=== PATIENT | male | born 1945 | race Caucasian/White ===

== ENCOUNTER 2018-04-13 14:51 | Inpatient (IN) | payer OTHER ==
[~2018-04-13] VITALS: Ht 185.4 cm; Wt 93.4 kg
[2018-04-13 15:37] VITALS: BP 137/77
[2018-04-13 17:34] VITALS: BP 135/95
[2018-04-13 17:41] LABS: HEMATOCRIT 32.9 % (42.0-52.0); HEMOGLOBIN 10.6 gm/dL (14.0-18.0); MCH 26.8 pg (26.0-34.0); MCHC 32.3 g/dL (28.0-37.0); MCV 83.1 fL (80.0-100.0); RBC 3.96 mil/uL (4.50-6.00); RDW 17.6 % (10.5-14.5); WBC 8.8 thou/uL (4.0-11.0)
[2018-04-13 17:49] LABS: APTT 34.9 Seconds (24.5-32.8); INR 1.1; PROTIME 11.4 Seconds (9.3-11.4)
[2018-04-13 17:54] LABS: ALBUMIN 2.6 g/dL (3.4-5.0); CALCIUM 6.7 mg/dL (8.5-10.1); CREATININE 18.4 mg/dL (0.7-1.3); POTASSIUM 4.5 mmol/L (3.5-5.1); TOTAL BILIRUBIN 0.6 mg/dL (<0.1-1.0); TOTAL PROTEIN 6.2 g/dL (6.4-8.2); TROPONIN-I 0.25 ng/mL (<0.06)
--- NOTE | 2018-04-13 20:02 | NUR ---
Pt is a direct admit, pt is to have a stent place mohamud by IR. Plan is to have dialysis inpt for 3 days then to be followed through OP. Labs and diagnostics ordered. No issues or complaints identified.
[2018-04-13 20:45] VITALS: BP 136/118
--- NOTE | 2018-04-14 03:17 | NUR ---
PT SLEPT MOST OF THE NIGHT PT USED CALL LIGHT EFFECTIVELY NO ISSUES OVERNIGHT.
[2018-04-14 03:38] VITALS: BP 133/95
[2018-04-14 05:32] LABS: HEMOGLOBIN 10.3 gm/dL (14.0-18.0)
[2018-04-14 05:33] LABS: MCH 26.7 pg (26.0-34.0); MCHC 32.2 g/dL (28.0-37.0); RBC 3.86 mil/uL (4.50-6.00); RDW 17.5 % (10.5-14.5); WBC 8.3 thou/uL (4.0-11.0)
[2018-04-14 06:05] LABS: ALBUMIN 2.4 g/dL (3.4-5.0); CALCIUM 6.7 mg/dL (8.5-10.1); CREATININE 18.8 mg/dL (0.7-1.3); MAGNESIUM 2.2 mg/dL (1.8-2.4); PHOSPHORUS 11.7 mg/dL (2.5-4.9); TOTAL BILIRUBIN 0.6 mg/dL (<0.1-1.0); TOTAL PROTEIN 5.9 g/dL (6.4-8.2)
[2018-04-14 07:39] VITALS: BP 132/89
[2018-04-14] MEDS ORDERED: RENA-VITE RX T1 EACH PO (07:42)
[2018-04-14] MEDS ORDERED: LABETALOL HCL100 MG PO (07:43)
[2018-04-14] MEDS ORDERED: AMLODIPINE BESY10 MG PO (07:44)
[2018-04-14] MEDS ORDERED: CARDURA2 MG PO (07:45)
[2018-04-14] MEDS ORDERED: RENVELA800 MG PO (07:45)
[2018-04-14] MEDS ORDERED: COZAAR 25 MG TA25 M1 PO (07:47)
--- NOTE | 2018-04-14 08:00 | EKG ---
[address] [address] ELECTROCARDIOGRAM REPORT Name: ERNESTO SWARTZYARELI Room #: 456-P ADM IN M.R.#: [id number] Admission: 04/13/18 Attend Phys: Ricardo Corrales MD Discharge: Date of : 49 Report #: [id number] THIS REPORT FOR: //name// [facility] Test Date: 2018-04-13 Test Time: 17:23:53 Pat Name: ETIENNE SWARTZ Department: Room: 456 P Gender: M Magazine Hand: Caren COMER : 1945 Requested By: Ricardo Corrales Order Number: [id number] MD: Shawn Rosario Measurements Intervals Kevin Rate: 95 P: GA: QRS: 68 QRSD: 106 T: 157 QT: 382 QTc: 481 Interpretive Statements Atrial fibrillation Ventricular premature complex Nonspecific ST and T wave abnormality No previous ECG available for comparison Electronically Signed On 04-14-2018 8:00:37 BOOTS AND SHOES SUPERVISOR by Shawn Rosario [email or web address] <ELECTRONICALLY SIGNED> By: Shawn Rosario MD, [facility] 04/14/18 0800 1723 1723 Shawn Rosario MD, FACC /EPI
--- NOTE | 2018-04-14 10:48 | 2DMMODE ---
[facility] [address] [place] [address] 2 D/M-MODE ECHOCARDIOGRAM Name: ETIENNE SWARTZ Room #: 456-P ADM IN M.R.#: [id number] Admission: 04/13/18 Attend Phys: Ricardo Corrales MD Discharge: Date of : 49 Date of Service: 04/14/18 1048 Report #: [id number] THIS REPORT FOR: //name// APPROVED REPORT Study performed: 04/14/2018 10:00:32 EXAM: Comprehensive 2D, Doppler, and color-flow Echocardiogram Patient Location: Bedside Room #: 456 Status: routine BSA: 2.12 HR: 120 bpm BP: 132/89 mmHg Rhythm: Atrial Fibrillation Other Information Study Quality: Excellent Indications Short of breath. Hx: dilated CM EF of 30-35%, chronic Afib, ESRD, HTN. 2D Dimensions RVDd: 52.09 mm IVSd: 13.26 (7-11mm) LVOT Diam: 23.18 (18-24mm) LVDd: 60.29 mm PWd: 12.64 (7-11mm) Ascending Ao: 42.12 (22-36mm) LVDs: 49.28 (25-40mm) Aortic Root: 39.94 mm Volumes Left Atrial Volume (Systole) Single Plane 4CH: 129.60 mL Single Plane 2CH: 121.96 mL LA ESV Index: 63.00 mL/m2 Aortic Valve AoV Peak Delfin.: 2.88 m/s AO Peak Gr.: 33.19 mmHg LVOT Max P.93 mmHg AO Mean Gr.: 22.33 mmHg AO V2 Mean: 2.32 m/s LVOT Max V: 0.69 m/s AO V2 VTI: 50.28 cm ANKUSH Vmax: 1.02 cm2 Mitral Valve [facility] [place] [address] 2 D/M-MODE ECHOCARDIOGRAM Name: ETIENNE SWARTZ Room #: 456-P ADM IN M.R.#: [id number] Admission: 04/13/18 Attend Phys: Ricardo Corrales MD Discharge: Date of : 49 Date of Service: 04/14/18 1048 Report #: [id number] MV Decel. Time: 124.57 ms MV E Max Delfin.: 1.05 m/s Pulmonary Valve PV Peak Delfin.: 0.75 m/s PV Peak Gr.: 2.27 mmHg Tricuspid Valve TR Peak Delfin.: 3.40 m/s RAP Estimate: 15.00 mmHg TR Peak Gr.: 46.18 mmHg PA Pressure: 61.00 mmHg Left Ventricle Left ventricle is mildly dilated. Mild concentric left ventricular hypertrophy. Left ventricular systolic function is severely decreased.globally LVEF is 30%. This study is not technically sufficient to allow evaluation of the LV diastolic function due to atrial fibrillation. Right Ventricle Right ventricle is dilated. Right ventricle is hypokinetic. Atria Left atrium is severely dilated. Right atrium is severely dilated. Aortic Valve Aortic valve leaflets are moderately thickened and calcified. Mild aortic regurgitation. Moderate aortic stenosis with a calculated valve area of 1.2cm2. Mitral Valve The mitral valve is normal in structure. Moderate mitral regurgitation. Tricuspid Valve The tricuspid valve is normal in structure. Moderate tricuspid regurgitation. Estimated PAP is 55- 60mmHg. Pulmonic Valve The pulmonary valve is normal in structure. Mild pulmonic regurgitation. Great Vessels Aortic root is dilated at 4.0cm. Ascending aorta is dilated at 4.2cm. IVC is dilated and collapses <50% with [facility] [address] [place] [address] 2 D/M-MODE ECHOCARDIOGRAM Name: ETIENNE SWARTZ Room #: 456-P [facility] IN M.R.#: [id number] Admission: 04/13/18 Attend Phys: Ricardo Corrales MD Discharge: Date of : 49 Date of Service: 04/14/18 1048 Report #: [id number] inspiration. Pericardium There is no pericardial effusion. <Conclusion> Left ventricle is mildly dilated. Mild concentric left ventricular hypertrophy. Left ventricular systolic function is severely decreased.globally LVEF is 30%. This study is not technically sufficient to allow evaluation of the LV diastolic function due to atrial fibrillation. Right ventricle is dilated. Right ventricle is hypokinetic. Left atrium is severely dilated. Right atrium is severely dilated. Aortic valve leaflets are moderately thickened and calcified. Mild aortic regurgitation. Moderate aortic stenosis with a calculated valve area of 1.2cm2. Moderate mitral regurgitation. Moderate tricuspid regurgitation. Estimated PAP is 55- 60mmHg. Aortic root is dilated at 4.0cm. There is no pericardial effusion. <ELECTRONICALLY SIGNED> By: Benson Pacheco MD, FACC 04/14/18 1048 1048 1048 Benson Pacheco MD, FACC /INF
[2018-04-14 15:09] VITALS: BP 150/98
--- NOTE | 2018-04-14 15:51 | NUR ---
PT ADMITTED RELATED TO FAILUR TO THRIVE, ESRD. CM REVIEWED CHART AND SPOKE WITH CARE TEAM. CM MET WITH PT AT BEDSIDE THIS DAY. PT IS A&O X4. CM ROLE INTRODUCED PT INDICATED HE LIVES IN A BASEMENT APARTMENT WITH HIS WITH NO STEPS TO ENTER AND NO STEPS INSIDE. 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 PT DOES NOC PERITONEAL DIALYSIS AND IS FOLLOWED BY JENNIFER MCKNIGHT AND DR. BISHOP. PT INDICATED NO DME OR HHHX. PT INDICATED HE PLANS TO RETURN HOME ONCE MEDICALLY STABLE. CM TO FOLLOW INDICATED WITH DC PLANNING.
[2018-04-14 17:51] VITALS: BP 122/83
--- NOTE | 2018-04-14 19:21 | NUR ---
PT HAD IR PROCEDURE THIS MORNING FOR PLACEMENT OF DIALYSIS CATHETER. PT THEN WENT OT DIALYSIS. PT HAS BEEN TACHYCARDIC SINCE ARRIVAL BACK ON UNIT, SEVERAL CALLS PLACED TO PHYSICIAN AND SEVERAL ORDERS FOR MEDS ENTERED AND GIVEN. PT ALSO HAD BLEEDING FROM DIALYSIS SITE, DIALYSIS NURSE CHANGED DRESSING. PT ALSO HAD TO BE TITRATED FOR LOW 02 SATURATION SEVERAL TIMES (4 LITERS ON UNIT). PT RESTING.
[2018-04-14 19:32] VITALS: BP 122/79
[2018-04-14 20:32] VITALS: BP 122/86
[2018-04-15 02:30] VITALS: BP 116/80
--- NOTE | 2018-04-15 03:16 | NUR ---
PT RESTED THROUGH MOST OF THE NIGHT PT UNCOMPLIANT WITH STAFF REQUEST TO WEAR O2 TO THE BATHROOM PT DID USE CALL LIGHT FOR HELP TO GO TO THE BATHROOM.
[2018-04-15 08:03] VITALS: BP 119/80
--- NOTE | 2018-04-15 15:08 | NUR ---
DR. AMARAL HAD INDICATED THAT HE WAS WORKING TO ESTABLISH PT WITH OUTPATIENT HEMO DIALYSIS [facility]. CM CALLED NOE AT [facility] AND SHE INDICATED THAT SHE HAD A CHAIR TIME FOR PT OF WEDNESDAY, , WEDNESDAY AT 10:45. CM FAXED FLOW SHEETS TO THEM. CM TO FOLLOW INDICATED WITH DC PLANNING. IF PT DISCHARGES OVER THE WEEKEND MOST RECENT FLOWSHEETS SHOULD BE FAXED TO .
[2018-04-15 15:45] VITALS: BP 127/86
[2018-04-15 19:01] VITALS: BP 124/84
--- NOTE | 2018-04-15 23:22 | NUR ---
Assumed care at 1845. Pt resting in bed. HR was at 141 when we was going to the bathroom but it has gone down to 104 whilst in bed. Pt denies chest pain. Call light within reach. Bed in lowest position. Will continue to monitor.
[2018-04-16 01:51] VITALS: BP 112/79
[2018-04-16 08:59] VITALS: BP 135/86
--- NOTE | 2018-04-16 17:06 | NUR ---
PT STABLE THROUGHOUT SHIFT. PT HAD DIALYSIS WHICH HER TOLERATED WELL. PT RESTING COMFORTABLY.
[2018-04-16 17:10] VITALS: BP 129/62
[2018-04-16 21:51] VITALS: BP 115/83
--- NOTE | 2018-04-17 03:13 | NUR ---
PT SLEPT MOST OF THE NIGHT PT USED CALL LIGHT EFFECTIVELY VS STABLE NO ISSUES OVERNIGHT.
[2018-04-17 04:22] VITALS: BP 116/71
[2018-04-17 07:31] VITALS: BP 125/86
[2018-04-17] MEDS ORDERED: NORVASC10 MG PO (09:48)
--- NOTE | 2018-04-17 11:20 | NUR ---
TOWARDS POC PT A/O X4, VSS, AFEBRILE. DENIES PAIN. PT IS PROBABLE DC TODAY AWAITING FOR NEPHROLOGY CLEARANCE. NO CONCERNS VOICED. WILL CONTINUE TO MONITOR.
[2018-04-17 13:54] VITALS: BP 107/69
[2018-04-17 19:28] VITALS: BP 111/70
--- NOTE | 2018-04-18 06:49 | NUR ---
PROGRESS PT ADMITTED WITH FAILURE TO THRIVE AND NON COMPLIANCE WITH PERITONEAL DIALYSIS AND ESRD. TEMPORARY DIALYSIS CATHETER PLACED PT HAD DIALYSIS YESTERDAY AND WILL TODAY BEOFRE DISCHARGING HOME. TO F/U WITH PCP AND DIALYSIS FACILITY FOR FURTHER TREATMENT ON DISCHARGE. TELE READING SA WITH A RATE IN THE 70'S.
[2018-04-18] MEDS ORDERED: LABETALOL HCL100 MG PO (12:29)
[2018-04-18] MEDS ORDERED: RENVELA800 MG PO (12:29)
[2018-04-18] MEDS ORDERED: CARDURA2 MG PO (12:29)
[2018-04-18] MEDS ORDERED: COZAAR 25 MG TA25 M1 PO (12:29)
[2018-04-18] MEDS ORDERED: RENA-VITE RX T1 EACH PO (12:29)
[2018-04-18 12:34] VITALS: BP 111/70
[2018-04-18 12:37] VITALS: BP 111/70
--- NOTE | 2018-04-18 12:44 | NUR ---
CARE TEAM INDICATED THAT PT IS MEDICALLY STABLE TO DISCHARGE HOME THIS DAY. PT IS SET UP WITH OP DIALYSIS AT [facility] M, W, F, 10:45 CHAIR TIME. CM MET WITH PT AND SPOUSE AT BEDSIDE AND INDICATED THE ABOVE. NO OTHER CM INTERVENTION INDICATED AT THIS TIME. CASE CLOSED.
--- NOTE | 2018-04-18 12:45 | NUR ---
PT STABLE THROUGHOUT SHIFT. PT HAD DIALYSIS WHICH HE TOLERATED WELL. PT DISCHARGED HOME, GIVEN DC INSTRUCTIONS, RX'S. PT LEFT UNIT VIA WHEELCHAIR TO PRIVATE VEHICLE.
--- NOTE | 2018-04-20 12:15 | HC ---
[facility] [place] [address] CONSULTATION Name: ETIENNE SWARTZ Room #: 456-P [facility] IN M.R.#: [id number] Admission: 04/13/18 Attend Phys: Ricardo Corrales MD Discharge: 04/18/18 Date of : 49 Report #: [id number] THIS REPORT FOR: //name// CC: FAM physician/PCP Ricardo Corrales DATE OF SERVICE: 04/13/2018 ATTENDING PHYSICIAN: Dr. Corrales. REASON FOR CONSULTATION: End-stage renal disease. HISTORY OF PRESENT ILLNESS: The patient is well known to our service, has been on peritoneal dialysis in our clinic for the last 2-3 years. Originally, has end-stage renal disease secondary to poorly controlled hypertension. The patient has been extremely poorly compliant with his peritoneal dialysis and medication prescriptions. He has been extremely poorly compliant with his diet. He has developed dilated cardiomyopathy and chronic atrial fibrillation. The patient has had progressive failure to thrive, accompanied by severe secondary hyperparathyroidism and very high serum phosphorus levels. He presented to [facility] today, extremely weak and tired and short-winded as well as swollen. He is admitted for transition to hemodialysis. PAST MEDICAL HISTORY: He has dilated cardiomyopathy with ejection fraction of 30-35%; chronic atrial fibrillation; history of difficult hypertension; previous cellulitis of the lower extremities, now healed; previous peritonitis secondary to his peritoneal dialysis prescription. FAMILY HISTORY: Noncontributory. SOCIAL HISTORY: No cigarettes or alcohol. Lives at home with his . REVIEW OF SYSTEMS: GENERAL: He is feeling poorly. EYES: Vision is reasonably good. ENT: Hearing okay, swallows okay. No mouth sores. ENDOCRINE: No diabetes or thyroid disease. RESPIRATORY: Easily short-winded with orthopnea. CARDIAC: No chest pain, angina. Had no palpitations. He does have the chronic atrial fibrillation. GASTROINTESTINAL: Very poor appetite, not eating much, some nausea. GENITOURINARY: Makes some urine, but not a lot. NEUROLOGIC: Diffuse weakness with some numbness in his legs. [facility] [address] [place] [address] CONSULTATION Name: ETIENNE SWARTZ Room #: [facility] IN M.R.#: [id number] Admission: 04/13/18 Attend Phys: Ricardo Corrales MD Discharge: 04/18/18 Date of : 49 Report #: [id number] HOME MEDICATIONS: Include amlodipine 10 mg daily, aspirin 81 mg daily, doxazosin 4 mg daily, labetalol 200 mg b.i.d., losartan 100 mg daily, renal vitamin and Renvela 2 with meals t.i.d., Tums E-X one with meals t.i.d. PHYSICAL EXAMINATION: VITAL SIGNS: Pale, ill appearing gentleman, in no acute distress. SKIN: Unremarkable. SKELETAL: Well developed, well nourished. HEENT: Extraocular movements are full. No scleral icterus. Hearing and vision intact. Mucous membranes are moist. Tongue, buccal mucosa benign. NECK: Neck veins are somewhat distended. CHEST: Shows crackles two-thirds of the way of both lung bases. HEART: Regular. ABDOMEN: Soft and nontender. Exit site looks okay. EXTREMITIES: Show 2+ peripheral edema. NEUROLOGIC: Shows generalized weakness. LABORATORY DATA: Pending. ASSESSMENT AND PLAN: 1. End-stage renal disease. He needs to transition to hemodialysis. We will start with placement of a tunneled dialysis catheter and then we will start him on short daily dialysis treatments over the next several days and transition him to outpatient therapy. 2. Dilated cardiomyopathy with heart failure. 3. Chronic atrial fibrillation with rate control. 4. History of difficult hypertension. 5. History of noncompliance. <ELECTRONICALLY SIGNED> By: Benson White MD 04/20/18 1215 1542 2144 Benson White MD /nt
== END 2018-04-18 13:30 | disposition home or self-care (01) | DRG 286 ==
LOC: 4W 14:51 → ENTRNSPT 04-18 13:12 → EDTRNSPTSTS 04-18 13:15 → 4W 04-18 13:30
PROVIDERS: Internal Medicine Nephrology; ADMIT Internal Medicine
PROC: 02H633Z Insertion of Infusion Device into Right Atrium, Percutaneous Approach (ICD-10-PCS; principal; 2018-04-14)
PROC: B2141ZZ Fluoroscopy of Right Heart using Low Osmolar Contrast (ICD-10-PCS; principal; 2018-04-14)
PROC: 5A1D70Z Performance of Urinary Filtration, Intermittent, Less than 6 Hours Per Day (ICD-10-PCS; principal; 2018-04-14)
PROC: B244YZZ Ultrasonography of Right Heart using Other Contrast (ICD-10-PCS; principal; 2018-04-14)
PROC: 0JH63XZ Insertion of Tunneled Vascular Access Device into Chest Subcutaneous Tissue and Fascia, Percutaneous Approach (ICD-10-PCS; principal; 2018-04-14)
PROC: 5A1D70Z Performance of Urinary Filtration, Intermittent, Less than 6 Hours Per Day (ICD-10-PCS; 2018-04-15)
PROC: 5A1D70Z Performance of Urinary Filtration, Intermittent, Less than 6 Hours Per Day (ICD-10-PCS; 2018-04-16)
PROC: 5A1D70Z Performance of Urinary Filtration, Intermittent, Less than 6 Hours Per Day (ICD-10-PCS; 2018-04-18)
DX: I13.2 Hypertensive heart and chronic kidney disease with heart failure and with stage 5 chronic kidney disease, or end stage renal disease (principal); J96.00 Acute respiratory failure, unspecified whether with hypoxia or hypercapnia; N18.6 End stage renal disease; N25.81 Secondary hyperparathyroidism of renal origin; E87.1 Hypo-osmolality and hyponatremia; I42.0 Dilated cardiomyopathy; E83.39 Other disorders of phosphorus metabolism; D63.8 Anemia in other chronic diseases classified elsewhere; I48.0 Paroxysmal atrial fibrillation; I50.9 Heart failure, unspecified; I25.5 Ischemic cardiomyopathy; I35.0 Nonrheumatic aortic (valve) stenosis; I48.2 Chronic atrial fibrillation; Z91.14 Patient's other noncompliance with medication regimen; Z79.899 Other long term (current) drug therapy; Z88.0 Allergy status to penicillin; Z28.21 Immunization not carried out because of patient refusal
CPT/HCPCS: 10045; 32100

== ENCOUNTER 2018-04-18 15:20 | Inpatient (IN) | payer OTHER ==
[~2018-04-18] VITALS: Ht 185.4 cm; Wt 79.4 kg
[~2018-04-18 15:20] MED LIST: AMLODIPINE BESY10 MG PO; CARDURA2 MG PO; COZAAR 25 MG TA25 M1 PO; LABETALOL HCL100 MG PO; NORVASC10 MG PO; RENA-VITE RX T1 EACH PO; RENVELA800 MG PO
[2018-04-18 15:49] VITALS: BP 129/70
[2018-04-18 17:12] VITALS: BP 129/70
[2018-04-18 17:55] VITALS: BP 122/80
[2018-04-18 18:00] VITALS: BP 120/87
[2018-04-18 18:26] LABS: BASOPHILS 0.5 % (0.0-2.0); EOSINOPHILS 0.8 % (0.0-3.0); HEMATOCRIT 33.6 % (42.0-52.0); HEMOGLOBIN 10.9 gm/dL (14.0-18.0); LYMPHOCYTES 9.5 % (24.0-44.0); MCH 26.6 pg (26.0-34.0); MCHC 32.5 g/dL (28.0-37.0); MCV 81.8 fL (80.0-100.0); MONOCYTES 8.1 % (1.0-8.0); PLATELET COUNT 193 thou/uL (150-400); POLYS 81.1 % (36.0-66.0); WBC 6.1 thou/uL (4.0-11.0)
--- NOTE | 2018-04-18 18:30 | NUR ---
PT ORIENTED TO ROOM AND UNIT. BED LOW AND LOCKED, SIDE RAILS UPX 3, CALL LIGHT IN REACH. PT REFUSES SCDS AT THIS TIME. DENIES CHEST PAIN AND IS ON 3LNC HUMIDIFIED. WILL CONTINUE TO ASSESS.
[2018-04-18 18:55] LABS: ALBUMIN 2.2 g/dL (3.4-5.0); CALCIUM 7.4 mg/dL (8.5-10.1); CREATININE 6.4 mg/dL (0.7-1.3); MAGNESIUM 1.9 mg/dL (1.8-2.4); PHOSPHORUS 3.9 mg/dL (2.5-4.9); POTASSIUM 4.1 mmol/L (3.5-5.1); TOTAL BILIRUBIN 0.7 mg/dL (<0.1-1.0); TOTAL PROTEIN 6.2 g/dL (6.4-8.2); TROPONIN-I 0.08 ng/mL (<0.06)
[2018-04-18 20:22] VITALS: BP 134/94
[2018-04-19 00:15] VITALS: BP 128/84
--- NOTE | 2018-04-19 01:48 | NUR ---
ASSUMED CARE 1900. VSS. AFIB CONTROLED. ASSESSMENT CHARTED. PT DENIES CP, SOA, OR ANY CONCERN. NC 3 L 95%. SLEEPING THROUGHOUT NIGHT. PLAN FOR LABS THIS AM WILL CONTINUE TO MONITOR AND WITH POC.
[2018-04-19 03:30] LABS: CALCIUM 7.8 mg/dL (8.5-10.1); CREATININE 7.3 mg/dL (0.7-1.3); POTASSIUM 4.1 mmol/L (3.5-5.1)
[2018-04-19 04:00] VITALS: BP 146/96
[2018-04-19 07:30] VITALS: BP 128/82
--- NOTE | 2018-04-19 08:36 | EKG ---
[address] [employer] [address] ELECTROCARDIOGRAM REPORT Name: MAXIMEETIENNE Room #: 203-P ADM IN M.R.#: [id number] Admission: 04/18/18 Attend Phys: Ricardo Corrales MD Discharge: Date of : 49 Report #: [id number] THIS REPORT FOR: //name// [facility] Test Date: 2018-04-18 Test Time: 18:15:54 Pat Name: ETIENNE SWARTZ Department: Room: 203 P Gender: M Label Operator: Caren COMER : 1945 Requested By: Ricardo Corrales Order Number: [id number] MD: Shawn Rosario Measurements Intervals [place] Rate: 93 P: [place]: QRS: 58 QRSD: 109 T: 152 QT: 407 QTc: 507 Interpretive Statements Atrial fibrillation Occasional premature ventricular complexes Nonspecific ST and T wave abnormality Prolonged QT interval Compared to ECG 04/13/2018 17:23:53 Ventricular premature complex(es) no longer present Electronically Signed On 04-19-2018 8:36:49 REVENUE OFFICER by Shawn Rosario [email or web address] <ELECTRONICALLY SIGNED> By: Shawn Rosario MD, [facility] 04/19/18 0836 1815 1815 Shawn Rosario MD, [facility] /EPI
--- NOTE | 2018-04-19 08:36 | EKG ---
[address] [employer] [place] [address] ELECTROCARDIOGRAM REPORT Name: ETIENNE SWARTZ Room #: 203-P ADM IN M.R.#: [id number] Admission: 04/18/18 Attend Phys: Ricardo Corrales MD Discharge: Date of : 49 Report #: [id number] THIS REPORT FOR: //name// [facility] Test Date: 2018-04-18 Test Time: 16:38:59 Pat Name: ETIENNE SWARTZ Department: Room: 203 Gender: M Prototype Engineer: ZAFAR : 1945 Requested By: Mihir Mayes Order Number: [id number] MD: Shawn Rosario Measurements Intervals [place] Rate: 88 P: [place]: QRS: 55 QRSD: 114 T: 154 QT: 392 QTc: 475 Interpretive Statements Atrial fibrillation Borderline low voltage, extremity leads Nonspecific ST and T wave abnormality Compared to ECG 04/13/2018 17:23:53 Ventricular premature complex(es) no longer present Electronically Signed On 04-19-2018 8:35:53 TERMINAL CLERK by Shawn Rosario [email or web address] <ELECTRONICALLY SIGNED> By: Shawn Rosario MD, [facility] 04/19/18 0835 1638 163 Shawn Rosario MD, [facility] /EPI
--- NOTE | 2018-04-19 09:59 | NUR ---
RD consult received for pt on renal diet. Admit with cardiomyopathy, hyperphosphamtemia, noncompliance, debility. ESRD/dialysis. Visit with pt this am, was disinterested in conversation, making no eye contact. Did state appetite has decreased over time, eats small meals. Wt is up about 8 lb, fluid overload. Denied any questions regarding renal diet. Agrees to trial some Nepro. Low nutrition risk
[2018-04-19 11:15] VITALS: BP 120/80
--- NOTE | 2018-04-19 15:21 | NUR ---
VSS PT REMAINS IN AFIB WITH VR 80-140 DEPENDING ON ACTIVITY. THIS AM PT UP IN BATHRROOM AND HR INCREASED TO 140'S, PT ASYMTOMATIC. LUNGS DIMINISHED O2 SAT 2L IS 96%, PT REMAINS DYSPNEIC WITH MINIMAL EXERTION. UP TO BRP WITH MINIMAL ASSISTANCE AND STEADY ON FEET. WILL CONTINUE TO MONITER AND CARE FOR PT PER PLAN OF CARE
[2018-04-19 15:35] VITALS: BP 109/81
--- NOTE | 2018-04-19 15:47 | NUR ---
Patient dc yesterday and readmitted he reports SOA and afib. Patient resides at home independent with adls and self care. Patient just transitioned to hemodialysis MWF at [facility] second shift. Discussed with patient skilled care post [place]. He reports interest in [facility] as close to his dialysis clinic. DC menu planner to send referral to [facility] Sp with who is in agreement with plan. Updated [facility].
--- NOTE | 2018-04-19 16:38 | NUR ---
FAXED REFERRAL TO LEFT MS WITH DAMION IN ADM. OF REFERRAL FAXED. ANTICIPATE DC POSS. TOMORROW. DCP TO FOLLOW.
[2018-04-19 19:25] VITALS: BP 117/86
[2018-04-20 03:42] VITALS: BP 136/81
[2018-04-20 07:34] VITALS: BP 121/86
--- NOTE | 2018-04-20 08:36 | NUR ---
PT. ON BED AT THE MOMENT OF RECEIVING SHIFT REPORT; AOX4; NO C/O PAIN; ST. WOULD LIKE TO REST DURING THE NIGHT; NO C/O PAIN; ASSESSMENT CHARGED; FOLLOWING POC.
[2018-04-20 09:52] VITALS: BP 121/86
[2018-04-20 11:10] VITALS: BP 129/81
--- NOTE | 2018-04-20 12:10 | NUR ---
FAXED REFERRAL TO [facility] SPOKE WITH [facility] WAITING ON INS. VERIFICATION AND THEY WILL BE ABLE TO TRANSFER DIALYSIS FROM [facility] TO [facility]. DCP TO FOLLOW.
[2018-04-20] MEDS ORDERED: ENOXAPARIN100 MG/11 SUBQ (13:23)
--- NOTE | 2018-04-20 13:32 | NUR ---
patient rec dialysis cont to await auth for [facility]. Alerted likely not therapy evals to update insurance as he is in dialysis.
[2018-04-20 15:11] VITALS: BP 128/92
--- NOTE | 2018-04-20 16:23 | NUR ---
At this time have faxed orders, therapy evals, [id number] to [facility]. Left message with [facility] if they could contact [facility] and patient rec dialysis at [facility] if rec auth for post acute care. have not rec auth at this time. Updated unit, Dr Corrales sent message to alert no dc today and left message with .
[2018-04-20 19:22] VITALS: BP 122/91
--- NOTE | 2018-04-20 20:12 | NUR ---
ASSUMED CARE OF PT AT SHIFT CHANGE. ASSESSMENT CHARTED. MEDS GIVEN PER MAY. PT AOX4 FLAT AND IRRITABLE AT TIMES, VSS, NO C/O PAIN. DENIES CHEST PAIN. PT HAD DIALYSIS TODAY, TOLERATED WELL. O2 SATS WNL ON 2L O2. PT GETS SOB WITH ACTIVITY AND EXERTION, RESOLVING WITH REST. TACHYCARDIC WITH ACTIVITY, RESOLVING WITH REST. PT HAD DISCHARGE ORDERS TODAY, THIS NURSE WAS TOLD BY SOCIAL WORK THAT IT WAS NOT AUTHORIZED. HOPEFUL FOR DC TOMORROW OR NEXT DAY. WILL CONTINUE TO MONITOR AND FOLLOW POC.
[2018-04-21 04:21] VITALS: BP 127/96
--- NOTE | 2018-04-21 05:41 | NUR ---
ASSUMED PT CARE AT 1900 WITH BEDSIDE REPORT COMPLETED, PT IS ALERT AND ORIENTED WITH NO SIGN OF DISTRESS NOTED IN PT. SCHEDULED MED ADMINISTERED TO PT. ASSESSMENT CHARTED, VITAL SIGNS STABLE. PT IS STABLE THROUGH OUT THE NIGHT. NO FURTHER NEEDS REQUESTED AT THIS TIME.
[2018-04-21 07:11] VITALS: BP 130/92
[2018-04-21 11:14] VITALS: BP 120/86
--- NOTE | 2018-04-21 13:58 | NUR ---
Rec'd call back from [facility] that they did recieve insurance auth for admission today. Pt notified as well as and son who were at bedside. DC raw material planner to fax final orders and 124c. They will have their w/c van with o2 transport the pt this afternoon. Pt to dialyze onsite there at [facility] starting tomorrow. Chart copy is ready to be sent with the pt and nursing to call report.
--- NOTE | 2018-04-21 14:36 | NUR ---
PT DISCHARGING TODAY TO FAXED DC ORDERS/SUMMARY TO FACILITY AND SPOKE WITH DAMION IN ADM. SHE RECEIVED ORDERS AND SET UP TRANSPORTATION [facility]IA [facility] FOR 1700 TODAY. DCP WENT TO PT'S AND SPOKE WITH PT. AND SON AND NOTIFIED THEN OF TRANSPORTATION TIME. UNIT NOTIFIED AND CHART COPY PER US. RN TO CALL REPORT TO [phone].
[2018-04-21 15:00] VITALS: BP 117/83
--- NOTE | 2018-04-21 17:42 | NUR ---
ASSUMED CARE OF PATIENT AT 0700. PT/VITALS STABLE. DENIES ANY PAIN. TOLERATES ACTIVITY WELL. ASSESSMENT CHARTED. PATIENT HAD AN EPISODE OF SHORTNESS OF AIR (O2 SAT AT 100%) WHICH WAS ALLEVIATED WITH A RT TREATMENT. PATIENT AGREED TO START USING ELIQUIS INSTEAD OF LOVENOX IN ADDITION TO TAKE XANAX TO HELP WITH ANXIETY FROM SHORTNESS OF AIR. DR. VACA WROTE NEW SCRIPTS FOR BOTH, ORIGINALS SENT TO THE FACILITY AND COPIES KEPT IN THE CHART. TRANSPORTATION PICKED UP THE PATIENT AT 1700 AND TRANSPORTED TO [facility]. REPORT WAS CALLED TO BENJI ESPINOZA. PATIENT STATES THAT HE FEELS BETTER THAN HE DID WHEN HE ARRIVED.
== END 2018-04-21 16:53 | DRG 291 ==
LOC: ER 15:20 → EROBS 16:56 → 2N 16:56
PROVIDERS: ADMIT Internal Medicine
PROC: 5A1D70Z Performance of Urinary Filtration, Intermittent, Less than 6 Hours Per Day (ICD-10-PCS; principal; 2018-04-19)
DX: I13.2 Hypertensive heart and chronic kidney disease with heart failure and with stage 5 chronic kidney disease, or end stage renal disease (principal); J96.01 Acute respiratory failure with hypoxia; I50.21 Acute systolic (congestive) heart failure; N18.6 End stage renal disease; E87.1 Hypo-osmolality and hyponatremia; I42.0 Dilated cardiomyopathy; I35.0 Nonrheumatic aortic (valve) stenosis; E87.70 Fluid overload, unspecified; E83.39 Other disorders of phosphorus metabolism; I48.0 Paroxysmal atrial fibrillation; I25.5 Ischemic cardiomyopathy; Z88.0 Allergy status to penicillin; Z91.14 Patient's other noncompliance with medication regimen; Z79.899 Other long term (current) drug therapy
CPT/HCPCS: 10081; 32100

== ENCOUNTER 2018-05-07 18:03 | Inpatient (IN) | payer OTHER ==
[~2018-05-07] VITALS: Ht 185.4 cm; Wt 81.7 kg
--- NOTE | ~2018-05-07 | HC ---
[facility] [place] [address] CONSULTATION Name: ETIENNE SWARTZ Room #: 363-P ADM IN M.R.#: [id number] Admission: 05/07/18 Attend Phys: Jason Herrera MD Discharge: Date of : 49 Report #: [id number] THIS REPORT FOR: //name// CC: Sebastian Herrera REASON FOR CONSULTATION: End-stage renal disease. REASON FOR PRESENTATION: Abdominal pain and throwing up. HISTORY OF PRESENT ILLNESS: A well-known patient to me, 72-year-old with history of noncompliance, severe cardiomyopathy, was recently switched from peritoneal dialysis to hemodialysis. He is dialyzing every Wednesday, Wednesday and Wednesday. He is known to have right inguinal hernia. He has been having intermittent abdominal pain associated with each meal. Pain has worsened in the last 24 hours and was associated with vomiting. No fever or chills. Because of the persistence of the pain, I received 2 calls from him yesterday and I advised him to come to the ER. He came to the Emergency Room where a CT revealed that he had a small-bowel obstruction with what seems to be an incarcerated large right indirect inguinal hernia. He is being admitted. Surgical consultation was obtained. I am being consulted to manage his end-stage renal disease. PAST MEDICAL HISTORY: 1. End-stage renal disease. 2. Cardiomyopathy with ejection fraction of around 30%. 3. Hypertension. 4. Remote history of peritonitis. 5. PD catheter. 6. Tunneled catheter. 7. History of atrial fibrillation in the last admission. REVIEW OF SYSTEMS: GENERAL: No fever or chills. CARDIOVASCULAR: Significantly better after starting hemodialysis when it comes to his breathing. PULMONARY: No cough or hemoptysis. GASTROINTESTINAL: As per the history of present illness. MUSCULOSKELETAL: No back pain, no morning stiffness. MEDICATIONS: 1. Doxazosin. 2. Amlodipine. 3. Losartan. 4. Sevelamer. 5. Labetalol. SOCIAL HISTORY: He lives with his . No drug or alcohol abuse. [facility] [address] [place] [address] CONSULTATION Name: ETIENNE SWARTZ Room #: 363-P [facility] IN M.R.#: [id number] Admission: 05/07/18 Attend Phys: Jason Herrera MD Discharge: Date of : 49 Report #: [id number] PHYSICAL EXAMINATION: GENERAL: He is alert, oriented, in no apparent distress. VITAL SIGNS: Temperature 36.5, pulse rate 72, blood pressure 134/95. HEAD AND NECK: No jugular venous distention. CHEST: No crackles. CARDIOVASCULAR: No rub. ABDOMEN: Soft with a PD catheter in place. There is a large indirect inguinal hernia. LOWER EXTREMITIES: No edema. LABORATORY DATA: Reviewed. Sodium was 134, potassium was mildly elevated at 5.9. Lactic acid was within normal. White blood cell count was within normal. Abdomen and pelvis CT reviewed, inguinal hernia present with small bowel obstructions. Chest x-ray with mild increase in the interstitial markings. ASSESSMENT, IMPRESSION AND PLAN: 1. End-stage renal disease. 2. Small bowel obstructions. 3. Indirect inguinal hernia. 4. Cardiomyopathy. 5. We will aim for the usual dialysis tomorrow. Surgical consultation. The patient seems to be comfortable. His abdomen was soft. He has no leukocytosis. Lactic acid was negative. He does not seem to be in any distress and I will defer the management of his small-bowel obstruction to his primary team. 6. Resume his outpatient medications. By: 0834 1823 Jese Blue MD /nt
[~2018-05-07 18:03] MED LIST changes: +ENOXAPARIN100 MG/11 SUBQ
[2018-05-07 18:07] VITALS: BP 155/96
[2018-05-07 18:30] LABS: ABSOLUTE NEUTROPHILS 2.9 thou/uL (1.4-8.2); HEMATOCRIT 37.6 % (42.0-52.0); HEMOGLOBIN 12.4 gm/dL (14.0-18.0); LYMPHOCYTES 25.4 % (24.0-44.0); MCH 26.9 pg (26.0-34.0); MCV 81.4 fL (80.0-100.0); MONOCYTES 11.8 % (1.0-8.0); PLATELET COUNT 254 thou/uL (150-400); POLYS 59.8 % (36.0-66.0); RBC 4.62 mil/uL (4.50-6.00); RDW 18.3 % (10.5-14.5); WBC 4.8 thou/uL (4.0-11.0)
[2018-05-07 18:48] LABS: CALCIUM 9.2 mg/dL (8.5-10.1); CREATININE 7.7 mg/dL (0.7-1.3); POTASSIUM 5.9 mmol/L (3.5-5.1)
[2018-05-07 18:51] LABS: APTT 32.4 Seconds (24.5-32.8); PROTIME 10.8 Seconds (9.3-11.4)
[2018-05-07 18:54] LABS: ALBUMIN 3.2 g/dL (3.4-5.0); TOTAL BILIRUBIN 0.5 mg/dL (<0.1-1.0); TOTAL PROTEIN 7.6 g/dL (6.4-8.2)
[2018-05-07 19:50] LABS: ANISOCYTOSIS 2+; OVALOCYTES OCCASIONAL
[2018-05-07 21:40] VITALS: BP 148/103
[2018-05-07 22:10] VITALS: BP 143/92
[2018-05-07 22:20] VITALS: BP 144/98
[2018-05-07] MEDS ORDERED: LABETALOL HCL100 MG PO (23:09)
[2018-05-08 03:50] VITALS: BP 134/95
--- NOTE | 2018-05-08 03:52 | NUR ---
ASSUMED CARE OF PATIENT AT 2330. ADMISSION COMPLETE. STATES PAIN IS NOW AT 0, HAD EMESIS OF 10ML, STATES THAT NAUSEA IS NOW GONE. PATIENT REMAINS NPO. POC GOALS ESTABLISHED. RESTING COMFORTABLY AT THIS TIME.
[2018-05-08 08:52] VITALS: BP 140/98
--- NOTE | 2018-05-08 10:57 | EKG ---
[address] [address] ELECTROCARDIOGRAM REPORT Name: ERNESTO SWARTZYARELI Room #: 363-P ADM IN M.R.#: [id number] Admission: 05/07/18 Attend Phys: Jason Herrera MD Discharge: Date of : 49 Report #: [id number] THIS REPORT FOR: //name// [facility] ED Test Date: 2018-05-07 Test Time: 18:21:59 Pat Name: ETIENNE SWARTZ Department: Room: 363 Gender: M [employer]: ZAFAR : 1945 Requested By: Sivakumar Raymundo Order Number: [id number] MD: Kang Stewart Measurements Intervals [place] Rate: 79 P: PA: QRS: 70 QRSD: 103 T: 148 QT: 377 QTc: 433 Interpretive Statements Atrial fibrillation Nonspecific ST segment abnormalities Compared to ECG 04/18/2018 18:15:54 T-wave abnormality now present Electronically Signed On 05-08-2018 10:57:26 PATENT CLERK by Kang Stewart [email or web address] <ELECTRONICALLY SIGNED> By: Kang Stewart MD 05/08/18 1057 1821 20 Kang Stewart MD /MIC
[2018-05-08 11:55] VITALS: BP 139/86
[2018-05-08 15:09] VITALS: BP 155/102
--- NOTE | 2018-05-08 18:45 | NUR ---
PT DENIES NAUSEA OR VOMITTING THIS SHIFT...NPO UNTIL @ 1500 WHEN CLEAR LIQUIDS ORDERED...TOLERATED WELL..NO NAUSEA NOTED...WILL MONITOR
[2018-05-08 19:45] VITALS: BP 166/115
[2018-05-08 21:45] VITALS: BP 123/68
[2018-05-09 04:00] VITALS: BP 136/101
--- NOTE | 2018-05-09 04:26 | NUR ---
RESTING QUIETLY TONIGHT. HE RELAXED ONCE HIS BLOOD PRESSURE WAS DECREASED AFTER TAKING PRN HYDRALAZINE IV. DENIES PAIN OR NAUSEA TONIGHT. HE IS LOOKING FORWARD TO SEEING HIS DOCTOR THIS MORNING. PROGRESSING TOWARD DISCHARGE GOALS. CAREPLAN REVIEWED.
[2018-05-09 06:11] LABS: HEMATOCRIT 34.9 % (42.0-52.0); HEMOGLOBIN 11.2 gm/dL (14.0-18.0); MCHC 32.1 g/dL (28.0-37.0); MCV 81.1 fL (80.0-100.0); RBC 4.3 mil/uL (4.50-6.00); RDW 18.5 % (10.5-14.5); WBC 5.1 thou/uL (4.0-11.0)
[2018-05-09 06:37] LABS: CREATININE 10.4 mg/dL (0.7-1.3)
--- NOTE | 2018-05-09 07:05 | NUR ---
pts potassium level this am 7.0, spoke with dialysis nurse and she rearranged the schedule for an emergent dialysis for this pt. spoke with dr. oropeza and he is going to contact the dialysis nurse who is with the patient at this time.
[2018-05-09 11:57] VITALS: BP 115/75
--- NOTE | 2018-05-09 13:46 | NUR ---
assess due to RD consult received. Pt recently hospitalized in March. Readmitted with abdominal pain-incarcerated hernia noted-conservative treatment at this time. Hx ESRD/dialysis. On clear liquids. BG controlled, K is very highNo significant wt changes. Recommend renal diet once advanced past clears. Low nutrition risk
--- NOTE | 2018-05-09 14:25 | NUR ---
ASSESSMENT: CM REVIEWED CHART AND MET WITH PATIENT AND HIS AT THE BEDSIDE. PT WAS ADMITTED FOR PARTIAL SBO. PT WAS RECENTLY AT [facility] AND WENT TO [facility] AND WAS HOME FOR LESS THEN 36 HOURS AND REPORTED BEING BACK IN THE HOSPITAL. PT REPORTS HE WAS SUPPOSED TO BE SET UP WITH [facility] BUT THEY HAD NOT CAME OUT YET. CM NOTIFIED [facility] THAT PATIENT IS INPATIENT. PT REPORTS THAT HE HAS BEEN USING A CANE FOR AMBULATION. PT STATES THEY HAVE A GRAB BAR AND A SHOWER CHAIR AT HOME. PT WAS RECENTLY SWITCHED FROM PERITONEAL DIALYSIS TO HEMODIALYSIS AND HAD BEEN GETTING IT [id number]. CM CONTACTED [facility] TO NOTIFY THEM OF PATIENTS ADMISSION AND THEY STATE TO CONTINUE TO FOLLOW UP PATIENT MAY BE GOING TO THE [facility] BUT WILL FOLLOW UP. CM WILL CONTINUE TO FOLLOW TO ASSIST NEEDED.
[2018-05-09 17:52] VITALS: BP 120/72
--- NOTE | 2018-05-09 19:59 | NUR ---
PT HAS DENIED ANY NAUSEA OR PAIN THIS SHIFT...HIS DIET WAS ADVANCED TO SOFT/RENAL FOR DINNER AND TOLERATED WELL..
[2018-05-09 20:10] VITALS: BP 125/82
[2018-05-10 04:00] VITALS: BP 131/95
--- NOTE | 2018-05-10 05:46 | NUR ---
no nausea this shift, only 75 ml out of ng tube tonight. she continues to have severy pain with repositioning in the bed. gave iv morphine this am for sever pain that in generalized. she is reluctant to talk, and it takes some time to get her to answer. she continues on iv fluids, gentle hydration. careplan reviewed. progressly very slowly toward discharge goals.
[2018-05-10 08:01] VITALS: BP 128/90
[2018-05-10 11:28] VITALS: BP 125/90
[2018-05-10 13:52] VITALS: BP 125/90
[2018-05-10 14:01] VITALS: BP 125/90
--- NOTE | 2018-05-10 14:15 | NUR ---
Assumed care of pt at 0700. Pt AOX4 in no acute distress. ambulating around hallways indipedently. anticipating d/c today and follow up w/ surgery next week for outpatient surgery. will cont to monitor.
== END 2018-05-10 14:40 | disposition home health service (06) | DRG 393 ==
LOC: ER 18:03 → EROBS 20:24 → 3W 20:24 → ENTRNSPT 05-10 14:20 → EDTRNSPTSTS 05-10 14:22 → 3W 05-10 14:40
PROVIDERS: Emergency Medicine; ADMIT Internal Medicine
PROC: 5A1D70Z Performance of Urinary Filtration, Intermittent, Less than 6 Hours Per Day (ICD-10-PCS; principal; 2018-05-08)
PROC: 5A1D70Z Performance of Urinary Filtration, Intermittent, Less than 6 Hours Per Day (ICD-10-PCS; 2018-05-09)
DX: K40.00 Bilateral inguinal hernia, with obstruction, without gangrene, not specified as recurrent (principal); N18.6 End stage renal disease; I13.2 Hypertensive heart and chronic kidney disease with heart failure and with stage 5 chronic kidney disease, or end stage renal disease; I50.20 Unspecified systolic (congestive) heart failure; I48.0 Paroxysmal atrial fibrillation; I25.5 Ischemic cardiomyopathy; H26.9 Unspecified cataract; E87.5 Hyperkalemia; I48.2 Chronic atrial fibrillation; Z88.8 Allergy status to other drugs, medicaments and biological substances; Z88.0 Allergy status to penicillin; Z79.899 Other long term (current) drug therapy; Z99.2 Dependence on renal dialysis
CPT/HCPCS: 10879; 32100